=== PATIENT | female | born 1965 | race Caucasian/White ===

== ENCOUNTER 2023-05-20 15:45 | Outpatient (RCR) | payer OTHER, SELFPAY | END 2023-07-09 15:54 | disposition home or self-care (01) | PROVIDERS: PCP Family Medicine; Visit Provider Orthopaedic Surgery Sports Medicine | DX: M16.11 Unilateral primary osteoarthritis, right hip (principal); Z96.641 Presence of right artificial hip joint; R26.9 Unspecified abnormalities of gait and mobility; R53.1 Weakness; R26.81 Unsteadiness on feet; R52 Pain, unspecified; Z51.89 Encounter for other specified aftercare | CPT/HCPCS: 97110; 97116; 97140; 97161; 97164 ==

== ENCOUNTER 2025-02-02 10:45 | Outpatient (CLI) | payer BC, SELFPAY ==
[2025-02-04 06:03] LABS: HPV Source Cervix; HPV, High Risk by TMA Not Detected
== END 2025-02-02 10:46 | disposition home or self-care (01) ==
PROVIDERS: PCP Emergency Medicine; Visit Provider Emergency Medicine
DX: E78.5 Hyperlipidemia, unspecified (principal); Z12.4 Encounter for screening for malignant neoplasm of cervix; Z13.1 Encounter for screening for diabetes mellitus
CPT/HCPCS: 80053; 80061; 87624; 87625; 88141; 88142

== ENCOUNTER 2025-02-18 08:39 | Outpatient (CLI) | payer BC, SELFPAY ==
--- NOTE | 2025-02-18 10:01 | P.ANES_ITS ---
Anesthesia Charges Start Date/Time Anesthesia Start Date: 02/18/25 Anesthesia Start Time: 09:19 Stop Date/Time Anesthesia Stop Date: 02/18/25 Anesthesia Stop Time: 09:59 Coding CPT Codes CPT Codes: ANES LWR INTST NDSC NOS - 58387 ([id number]) P2 - PATIENT W/MILD SYST DISEASE, QZ - POLYETHYLENE COMBINER SVC W/O DE ICER BY
--- NOTE | 2025-02-18 10:01 | W.ANESCHARGE ---
Anesthesia Charges Start Date/Time Anesthesia Start Date: 02/18/25 Anesthesia Start Time: 09:19 Stop Date/Time Anesthesia Stop Date: 02/18/25 Anesthesia Stop Time: 09:59 Coding CPT Codes CPT Codes: ANES LWR INTST NDSC NOS - 00244 ([id number]) P2 - PATIENT W/MILD SYST DISEASE, QZ - KNIFE EDGER SVC W/O BINITROTOLUENE OPERATOR BY
== END 2025-02-18 08:40 | disposition home or self-care (01) ==
LOC: OP CLINIC 08:40
PROVIDERS: PCP Emergency Medicine; Visit Provider Surgery
DX: Z12.11 Encounter for screening for malignant neoplasm of colon (principal); D12.0 Benign neoplasm of cecum; D12.5 Benign neoplasm of sigmoid colon; D12.7 Benign neoplasm of rectosigmoid junction; D12.8 Benign neoplasm of rectum; Z86.0100 Personal history of colon polyps, unspecified
CPT/HCPCS: 00811; 45385; 88305; J2704

== ENCOUNTER 2025-04-01 15:53 | Outpatient (CLI) | payer BC, SELFPAY | END 2025-04-01 15:54 | disposition home or self-care (01) | LOC: LKVREF 15:53 | PROVIDERS: PCP Emergency Medicine; Visit Provider Emergency Medicine | DX: I10 Essential (primary) hypertension (principal); E78.2 Mixed hyperlipidemia; F41.8 Other specified anxiety disorders | CPT/HCPCS: 80048; 80061; 84443 ==

== ENCOUNTER 2025-04-29 14:20 | Outpatient (CLI) | payer BC, SELFPAY ==
--- NOTE | 2025-04-29 14:40 | CRLHL7_ITS ---
For Patients: As a result of the Century Cures Act, medical imaging exams and procedure reports are released immediately into your electronic medical record. You may view this report before your referring provider. If you have questions, please contact your health care provider. INDICATION: BILATERAL SCREENING MAMMOGRAM, ASYMPTOMATIC 59 Y/O FEMALE COMPARISON: 09/24/2022, 04/25/2021 TECHNIQUE: Digital mammogram in CC and MLO projections including computer-aided detection (CAD) and tomosynthesis. BREAST COMPOSITION: The breasts are heterogeneously dense, which may obscure small masses. FINDINGS: No suspicious findings. ASSESSMENT: BI-RADS 1 Negative RECOMMENDATION: Annual screening mammogram. A lay language report of this examination will be provided to the patient. Dictated by: Luis Garza MD @ 04/30/2025 11:26:50 (Electronically Signed)
--- NOTE | 2025-04-29 15:00 | CRLHL7_ITS ---
For Patients: As a result of the Century Cures Act, medical imaging exams and procedure reports are released immediately into your electronic medical record. You may view this report before your referring provider. If you have questions, please contact your health care provider. DXA BONE MINERAL DENSITY STUDY Reason for exam: History of low bone density. Current height (in): 63. Weight (lb): 130. Menopause age: 45. Ethnicity: White. 1. Have you had a previous hip or vertebral fracture? No. 2. Have you had any fractures during your adult life which did not result from significant trauma (e.g., auto accident)? Yes. 3. Did either of your parents have a hip fracture? No. 4. Do you smoke? Yes. 5. Have you ever taken Glucocorticoids? No. 6. Do you have rheumatoid arthritis? No. 7. Do you have secondary osteoporosis? No. 8. Do you drink 3 or more alcoholic drinks per day? No. 9. Are you being treated for osteoporosis? No. 10. Have you ever taken any of the following medications: Actonel, Evista, Fosamax, Miacalcin, Reclast, Boniva, Forteo, HRT (i.e. estrogen/hormone therapy), Protelos, Prolia, Vitamin D, Calcium, other ??? please specify. ANSWER: Yes, vitamin D and calcium. 11. Do you have any of the following medical conditions: Anorexia or bulimia, asthma or emphysema, end stage renal disease, hyperparathyroidism, any seizure disorders, cancer, inflammatory bowel diseases, hysterectomy, other ??? please specify. ANSWER: No. 12. What was your maximum height (inches)? 63. 13. Do you perform weight bearing exercise regularly? Yes. 14. Do you regularly consume dairy products? Yes. 15. Do you drink caffeinated beverages? Yes. 16. At what age did your period start? 14. 17. Are you premenopausal? No. 18. How many full-term pregnancies have you had? 0. 19. Have you ever missed your period for more than 6 months in a row (not including or menopause)? No. TECHNIQUE: Bone mineral density study was performed using the [employer]. FINDINGS: The results of the study expressed as bone mineral density (BMD) are as follows: Lumbar spine L1 to L4: BMD: 1.141 g/cm2. T-score: 0.9. Z-score: 2.2. Neck Left: BMD: 0.653 g/cm2. T-score: -1.8. Z-score: -0.5. Total Left: BMD: 0.745 g/cm2. T-score: -1.6. Z-score: -0.7. Radius Left 33%: BMD: 0.579 g/cm2. T-score: -1.9. Z-score: -0.7. IMPRESSION: Osteopenia. *Comparison exams done prior to 04/2020 were performed on different unit, [employer]. FRAX 10-year Fracture Risk Major Osteoporotic Fracture: 14 percent Hip Fracture: 2.6 percent Reported Risk Factors: [place] () Neck BMD=0.653, BMI=23.0, previous fracture, smoking Luis Garza M.D. Diagnostic Radiologist [email or web address] ABEL/jeff aguilar/Dictated by: Luis Garza MD @ 04/30/2025 9:23:00 AM (Electronically Signed)
--- OUTSIDE RECORDS SUMMARY | 2025-04-30 00:39 | XMS_ITS | Clinical Summary ---
Author Organization [facility] Address [address] [place] [id number] Care Team Providers Care Costumed Character Name Role Phone Deepa Kirk MD Primary Care Provider Allergies No known active allergies Medications MULTIVITAMIN TAB take 1 tablet by oral route once daily with food 0 10/08/2007 Active cholecalciferol (VITAMIN D-3) 2,000 unit capsule Take 1 capsule by mouth once daily. 0 04/30/2018 Active Active Problems Problem Noted Date Diagnosed Date Depression 08/10/2022 Adenomatous colon polyp 12/16/2018 Overview (12/16/2018): Colonoscopy 12/2018 polyp, repeat in 5 years Tobacco use disorder 06/07/2015 Immunizations Immunization Administration Dates Next Due DT (Age < 7 years) 04/03/1990 Influenza, IIV4 10/16/2018 Tdap 04/07/2014,08/12/2003 Zoster (Shingrix-RZV, recombinant) 07/12/2020, Family History Medical History Relation Name Comments Stroke Brother Cancer Father pancreatic, d age 45 Cancer Mother peritoneum ?ova ry as primary Hyperlipidemia Mother Other Mother congenital abse nce of one kidney Good Health Sister x2 Cancer-breast No Family History Cancer-ovarian No Family History Relation Name Status Comments Brother Father Mother Sister Social History Tobacco Use Types Packs/Day Years Used Date Smoking Tobacco: Every Day Cigarettes Smokeless Tobacco: Never Tobacco Cessation:Ready to Q uit: No; Counseling Given: Yes Comments:7-10 cigarettes daily Alcohol Use Standard Drinks/Week Comments Yes 0 (1 standard drink = 0.6 oz pur e alcohol) PHQ-2 Answer Date Recorded PHQ-2 TOTAL SCORE 0 01/19/2020 Social Connections Answer Date Recorded Frequency of Communication with Friends and Fami ly Not on file 11/11/2021 Financial Resource Strain Answer Date R ecorded Difficulty of Paying Living Expenses Not on file 11/11/2021 Difficulty of Paying Living Expenses Not on file 11/11/2021 Comments No Sex and Gender Information Value Date Recorded Sex Assigned at Not on file Legal 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 Gender Identity Not on file Sexual Orientation Not on file 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 Not on file Not on file Not on file Obstetrics History Para Term AB IAB SAB Ectopic Multiple Livin g Live Births 0 0 0 0 0 0 0 0 0 0 Last Filed Vital Signs Vital Sign Reading Time Taken Comments Blood Pressure 146/80 01/19/2020 8:28 AM CDT man ual Pulse 60 01/19/2020 8:23 AM CDT Temperature 36.6 C (97.8 F) 01/19/2020 8:23 AM CDT Respiratory Rate - - Oxygen Saturation 98% 01/19/2020 8:23 AM CDT Inhaled Oxygen Concentration - - Weight 59.6 kg (131 lb 6.4 oz) 01/19/2020 8:23 A M CDT Height 161.4 cm (5' 3.54) 01/19/2020 8:23 AM CD T Body Mass Index 22.88 01/19/2020 8:23 AM CDT Plan of Treatment Health Maintenance Due Date Last Done Comments Depression screening for age 12+ 1977 HIV for age 15-65 1980 Hepatitis C screening for ag e 18-79 1983 Hepatitis B series for 19+ ( 1 of 3 - 19+ 3-dose series) 1984 Pneumococcal series for age 50+ (1 of 1 - PCV) 2015 BMI (ht and wt on same day) for age 18+ 01/18/2021 01/19/2020, 10/16/2018, 04/30/2018 Mammogram for age 45-75 09/24/2023 09/24/20 22, 04/25/2021, 01/13/2020, Additional history exists Pap test for age 21-65 10/16/2023 8, 10/16/2018, 04/28/2014, Additional history exists Colonoscopy through age 75 12/12/202312/12, 12/12/2018, 12/12/2018 Tetanus booster 04/07/2024 04/07/2014, 08/12/2003 COVID-19 vaccine series ( season) 2024 05/28/2022, 10/19/2021, 02/02/2021, Additional history exists Lipids for age 45-75 01/18/2025 01/19/2020, 10/16/2018, 04/28/2014, Additional history exists Influenza Vaccine (Season Ended) 2025 10/16/20 18 Tdap Completed 04/07/2014, 08/12/2003 Zoster (shingles) series for age 50+ Completed 07/12/2020, 01/19/2020 Procedures Procedure Name Priority Date/Time Associated Diagnosis Comments XR MAMMO JOSE R BILAT SCREEN Routine 09/24/2022 12:49 PM ASSISTANT COACH Visit for screening mammogram LIPID PANEL W REFLEX MEASURED LDL Routine 01/19/2020 9:26 AM CDT Lipid screening COLONOSCOPY SCREENING Routine 12/12/2018 8:57 AM ASSISTANT COACH Screening for colon cancer EXTENSION SERVICE SPECIALIST THIN PREP PAP SCREEN IMAGED Routine 10/16/2018 12:00 PM ASSISTANT COACH Cervical cancer screening from Last 3 Months or Most Recently Relevant to Health Maintenance Results * XR MAMMO JOSE R BILAT SCREEN (09/24/2022 12:49 PM ASSISTANT COACH) Anatomical Region Laterality Modality BREASTS, Breast Left, Breast Right Bilateral Mammography Impressions 09/25/2022 2:46 PM ASSISTANT COACH There is no radiographic evidence for malignancy. Recommend annual mammograms. MAMMOGRAM ASSESSMENT: ACR 1 Negative PATIENTS: You will also receive a letter with your examination results in an easy to read format. If you have questions about your results, please contact your referring provider. Narrative 09/25/2022 2:46 PM ASSISTANT COACH For Patients: As a result of the Century Cures Act, medical imaging exams and procedure reports are released immediately into your electronic medical record. You may view this report before your referring provider. If you have questions, please contact your health care provider. XR MAMMO JOSE R BILAT SCREEN [[id number]] CLINICAL HISTORY: This is an asymptomatic 56 y.o. patient. INDICATION FOR EXAM: Mammogram Screening. TECHNIQUE: CC & MLO views were obtained. This study was evaluated with the assistance of Computer-Aided Detection. Breast Tomosynthesis was used in interpretation. COMPARISON FILM: Yes 04/25/21 [facility] 01/13/20 [facility] FINDINGS: The breasts are heterogeneously dense, which may obscure small masses. There are no dominant masses, suspicious micro calcifications or areas of architectural distortion. us Deepa Kirk MD MAMMO Final R esult * (ABNORMAL) LIPID PANEL W REFLEX MEASURED LDL (01/19/2020 9:26 AM CDT) CHOLESTEROL,TOTAL 254(H) 100 - 199 mg/dL 01/19/2020 8:31 PM CDT [facility] TRIGLYCERIDES 95 <150 mg/dL 01/19/2020 8:31 PM CDT [facility] HDL CHOLESTEROL 74 >40 mg/dL 0 8:31 PM CDT [facility] NON-HDL CHOLESTEROL 180(H) <145 mg/dl 01/19/2020 8:31 PM CDT [facility] CHOL/HDL RATIO 3.43 <4.50 01/19/2020 8:31 PM CDT [facility] LDL CHOLESTEROL 161(H) <=130 mg/dL 01/19/2020 8:31 PM CDT [facility] PROVIDER ORDERED STATUS RANDOM 01/19/2020 8:31 PM CDT [facility] Blood BLOOD SPECIMEN / Unknown Venipuncture / Unknown 01/19/2020 9:26 AM CDT 01/19/2020 9:26 AM CDT us Deepa Kirk MD CHEMISTRY Final R esult [facility] [address] [place] [address], * COLONOSCOPY SCREENING (12/12/2018 8:57 AM ASSISTANT COACH) us Deepa Kirk MD GI PROCEDURE ORD Final Result * EXTENSION SERVICE SPECIALIST THIN PREP PAP SCREEN IMAGED (10/16/2018 12:00 PM ASSISTANT COACH) Case Report Gynecologic Cytology Report Case: [id number] Authorizing Provider: Deepa Kirk MD Collected: 10/16/2018 1200 Ordering Location: [facility] Received: 10/16/2018 1244 Clinic First Screen: Leeanne Price Specimen: EXTENSION SERVICE SPECIALIST ThinPrep Vial Screening, Cervical 10/30/2018 1:17 PM ASSISTANT COACH [facility] INTERPRETATION/ RESULT NEGATIVE FOR INTRAEPITHELIAL LESION OR MALIGNANCY (NIL) (none) 10/30/2018 1:17 PM ASSISTANT COACH [facility] at 1317 ASSISTANT COACH SPECIMEN ADEQUACY Satisfactory for evaluation Endocervical component present 10/30/2018 1:17 PM [facility] HPV REQUEST HPV and PAP 10/30/2018 1:17 PM ASSISTANT COACH [facility] Date of LMP 201410/30/2018 1:17 PM ASSISTANT COACH [facility] Last Pap Date 04/201410/30/2018 1:17 PM ASSISTANT COACH [facility] Last Pap Result NIL 8 1:17 PM ASSISTANT COACH [facility] Abnormal Pap or [place] Bx in last 5 years No 10/30/2018 1:17 PM ASSISTANT COACH [facility] Menstrual Status Postmenopausal 10/30/2018 1:17 PM ASSISTANT COACH [facility] [place] Bx Done Today No 10/30/2018 1:17 PM ASSISTANT COACH [facility] Additional Information None given 10/30/2018 1:17 PM ASSISTANT COACH [facility] Automated Review Successful 10/30/2018 1:17 PM ASSISTANT COACH [facility] Comment:Specimen processed s uccessfully by automated senior java web developer device, ThinPrep Imaging System, [employer] ANCILLARY TESTING EXTENSION SERVICE SPECIALIST HPV Ordered, Please see separate report 10/30/2018 1:17 PM ASSISTANT COACH [facility] Note The pap test is a screening technique, not a diagnostic procedure. It is used primarily to screen for squamous cancers and precursor lesions. Published studies have shown that it is subject to both false negative and false positive results. The pap test should not be used as the sole means to diagnose or exclude pre-malignant and malignant lesions. Cytology is screened and interpreted at [facility] - [address], [place] [address] and [facility] - [address]; [place] [address] and [facility] - [address]; [place] [address] and [facility] [address]; [place] [address] 10/30/2018 1:17 PM ASSISTANT COACH [facility] Other (Cervical) Non-Blood / Unknown 10/16/2018 12:00 PM ASSISTANT COACH 10/16/2018 12:44 PM ASSISTANT COACH us Deepa Kirk MD PATHOLOGY/CYTOLOGY Jaclyn l Result [facility] [address] [place] [address], [place] from Last 3 Months or Most Recently Relevant to Health Maintenance Care Teams Costumed Character Relationship Specialty Start Date End Date Deepa Kirk MD [address] [place] [address] PCP - General Family Practice 10/16/18
== END 2025-04-29 14:21 | disposition home or self-care (01) ==
LOC: MAMMO 14:21
PROVIDERS: PCP Emergency Medicine; Visit Provider Emergency Medicine
DX: Z12.31 Encounter for screening mammogram for malignant neoplasm of breast (principal); R92.333 Mammographic heterogeneous density, bilateral breasts; Z13.820 Encounter for screening for osteoporosis; M85.89 Other specified disorders of bone density and structure, multiple sites
CPT/HCPCS: 77063; 77067; 77080

== ENCOUNTER 2025-07-07 08:00 | Outpatient (CLI) | payer BC, SELFPAY | END 2025-07-07 08:01 | disposition home or self-care (01) | LOC: NFLDREF 07-08 15:11 | PROVIDERS: Referring Provider Emergency Medicine; Visit Provider Emergency Medicine | DX: E78.2 Mixed hyperlipidemia (principal) | CPT/HCPCS: 80061 ==